=== PATIENT | male | born 1925 | race Caucasian/White ===

== ENCOUNTER 2016-06-14 06:14 | Inpatient (IN) | payer MEDICARE ==
[2016-06-14] VITALS (14 sets, daily range): BP systolic 94–132
[~2016-06-14] VITALS: Ht 170.2 cm; Wt 76.7 kg
[~2016-06-14 06:14] MED LIST: ALBU2.5V7 INH; ALBU8.5H8 INH; DOCU-144 PO; FINA5TAB3 PO; FLUT16SP16 NS; MOME13HF INH; MULT PO; OMEP20CA10 PO; PROP20TA7 PO; SENN-153 PO; TAMS0.4C96 PO
[2016-06-14] MEDS ORDERED: NACL 0.9% 1,000 ML IV ONE ×2 (06:30→08:30)
[2016-06-14 06:53] LABS: BASOPHILS % (AUTO) 0.3 % (0.0-2.0); EOSINOPHILS % (AUTO) 0.3 % (0.0-4.0); HEMATOCRIT 30.9 % (36-54); HEMOGLOBIN 10.2 g/dL (14.0-18.0); LYMPHOCYTES # (AUTO) 0.5 K/uL (1.0-5.5); LYMPHOCYTES % (AUTO) 8.8 % (20.5-51.5); MEAN CORPUSCULAR HEMOGLOBIN 29 pg (27-31); MEAN CORPUSCULAR HGB CONC 33 % (32-36); MEAN CORPUSCULAR VOLUME 87 fL (79.0-98.0); MONOCYTES % (AUTO) 0.3 % (1.7-9.3); NEUTROPHILS # (AUTO) 5.6 K/uL (1.8-7.7); NEUTROPHILS % (AUTO) 90.3 % (40.0-70.0); PLATELET COUNT (AUTO) 201 K/uL (130-430); RED BLOOD CELL COUNT(AUTO) 3.53 MIL/uL (4.2-6.2); WHITE BLOOD COUNT (AUTO) 6.1 K/uL (4.8-10.8)
[2016-06-14] MEDS ORDERED: ACET-2165 PO (06:58)
[2016-06-14 07:00] LABS: BILIRUBIN,URINE NEGATIVE (NEGATIVE); BLOOD, URINE 2+ (NEGATIVE); CLARITY/URINE CLOUDY (CLEAR); COLOR,URINE YELLOW (YELLOW); GLUCOSE,URINE NEGATIVE (NEGATIVE); KETONES,URINE NEGATIVE (NEGATIVE); LEUKOCYTE ESTERASE ,URINE 3+ (NEGATIVE); NITRITE, URINE POSITIVE (NEGATIVE); PH,URINE 5.5 (5.0-8.0); PROTEIN URINE TRACE (NEGATIVE); UROBILINOGEN,URINE 0.2 (0.2-1.0)
[2016-06-14] MEDS ORDERED: MOME13HF IH (07:00)
[2016-06-14 07:01] LABS: PROTHROMBIN TIME 11.3 SECS (9.5-12.5)
[2016-06-14 07:02] LABS: ANION GAP 9 (5-15); CHLORIDE 104 mmol/L (98-107); CREATININE 1.94 mg/dL (0.55-1.30); GLUCOSE 141 mg/dL (70-99); POTASSIUM 3.8 mmol/L (3.5-5.1); SODIUM SERUM 137 mmol/L (136-145); UREA NITROGEN, BLOOD 26 mg/dL (8-21)
[2016-06-14] MEDS ORDERED: LIDOINT TP (07:02)
[2016-06-14] MEDS ORDERED: CLOT15CR10 TP (07:04)
[2016-06-14 07:15] LABS: ALANINE AMINOTRANSFERASE 44 U/L (12-78); ALBUMIN 3.4 g/dL (3.4-4.8); ASPARTATE AMINOTRANSFERASE 19 U/L (10-37); CREATINE KINASE, TOTAL 40 U/L (39-308); TOTAL BILIRUBIN 1.2 mg/dL (0.0-1.0); TOTAL PROTEIN, SERUM 7.7 g/dL (6.4-8.3)
[2016-06-14 07:16] LABS: ALCOHOL, BLOOD < 3 mg/dL (<10)
[2016-06-14 07:26] LABS: BACTERIA,URINE MANY /HPF (None Seen); WBC,URINE 20-50 /HPF (0-3)
[2016-06-14 07:39] LABS: SALICYLATE < 1 mg/dL (3-30)
[2016-06-14 07:43] LABS: BARBITURATE, URINE NEGATIVE (NEG <=200); BENZODIAZEPINE, URINE NEGATIVE (NEG <=150); CANNABINOID, URINE NEGATIVE (NEG <=50); COCAINE, URINE NEGATIVE (NEG <=150); METHAMPHETAMINES SCREEN,URINE NEGATIVE (NEG <=500); OPIATE, URINE NEGATIVE (NEG <=100); PHENCYCLIDINE SCREEN,URINE NEGATIVE (NEG <=25); UR TRICYCLIC ANTIDEPRESSANTS NEGATIVE (NEG <=300); URINE AMPHETAMINE NEGATIVE (NEG <=500); URINE METHADONE NEGATIVE (NEG <=200); URINE OXYCODONE SCREEN NEGATIVE (NEG <=100); URINE PROPOXYPHENE SCREEN NEGATIVE (NEG <=300)
[2016-06-14] MEDS ORDERED: ONDANSETRON HCL 4 MG/2 ML VIAL IVP ONE (07:45)
[2016-06-14] MEDS ORDERED: ACETAMINOPHEN 325 MG TABLET PO ONE (08:00)
[2016-06-14] MEDS: NACL 0.9% 1,000 ML IV SCH ×2 (14:59→22:34)
[2016-06-14] MEDS ORDERED: ACETAMINOPHEN 325 MG TABLET PO PRN (15:30)
[2016-06-14] MEDS ORDERED: ALBUTEROL SULFATE 0.083% 2.5 MG/3 ML VIAL.NEB INH PRN (16:00)
[2016-06-14] MEDS ORDERED: COMMUNICATION ORDER XX ONE (16:30)
[2016-06-14] MEDS: DOCUSATE SODIUM 100 MG CAPSULE PO SCH (21:18)
[2016-06-14] MEDS: PROPRANOLOL HCL 10 MG TABLET (INDERAL) PO SCH (21:18)
[2016-06-14] MEDS: TAMSULOSIN HCL 0.4 MG CAP PO SCH (21:18)
[2016-06-14] MEDS: SENNOSIDES 8.6 MG TABLET PO SCH (21:19)
[2016-06-14] MEDS ORDERED: CEFEPIME 1 GM/VIAL (MAXIPIME) ONE (21:48)
[2016-06-14] MEDS: CEFEPIME 1 GM in D5W 50 ML IV SCH (22:00)
[2016-06-15] VITALS (24 sets, daily range): BP systolic 98–146
[2016-06-15 06:43] LABS: BASOPHILS % (AUTO) 0.1 % (0.0-2.0); EOSINOPHILS # (AUTO) 0.1 K/uL (0.0-0.4); EOSINOPHILS % (AUTO) 0.8 % (0.0-4.0); HEMATOCRIT 26.5 % (36-54); HEMOGLOBIN 8.4 g/dL (14.0-18.0); LYMPHOCYTES # (AUTO) 1.3 K/uL (1.0-5.5); LYMPHOCYTES % (AUTO) 15.6 % (20.5-51.5); MEAN CORPUSCULAR HEMOGLOBIN 28 pg (27-31); MEAN CORPUSCULAR HGB CONC 32 % (32-36); MEAN CORPUSCULAR VOLUME 88 fL (79.0-98.0); MONOCYTES # (AUTO) 0.4 K/uL (0.0-1.0); MONOCYTES % (AUTO) 4.2 % (1.7-9.3); NEUTROPHILS # (AUTO) 6.5 K/uL (1.8-7.7); NEUTROPHILS % (AUTO) 79.3 % (40.0-70.0); PLATELET COUNT (AUTO) 123 K/uL (130-430); RED BLOOD CELL COUNT(AUTO) 3.02 MIL/uL (4.2-6.2); RED CELL DISTRIBUTION WIDTH 15.1 % (9.0-15.0); WHITE BLOOD COUNT (AUTO) 8.3 K/uL (4.8-10.8)
[2016-06-15 06:55] LABS: ALANINE AMINOTRANSFERASE 32 U/L (12-78); ALBUMIN 2.4 g/dL (3.4-4.8); ANION GAP 7 (5-15); ASPARTATE AMINOTRANSFERASE 24 U/L (10-37); CALCIUM 8.3 mg/dL (8.4-11.0); CHLORIDE 108 mmol/L (98-107); CREATININE 1.52 mg/dL (0.55-1.30); GLUCOSE 99 mg/dL (70-99); POTASSIUM 4.1 mmol/L (3.5-5.1); SODIUM SERUM 139 mmol/L (136-145); THYROID STIMULATING HORMONE 2.56 uIu/mL (0.34-4.82); TOTAL BILIRUBIN 0.8 mg/dL (0.0-1.0); TOTAL PROTEIN, SERUM 6.1 g/dL (6.4-8.3); UREA NITROGEN, BLOOD 23 mg/dL (8-21)
[2016-06-15] MEDS ORDERED: LEVOFLOXACIN 250 MG/D5W 50 ML IV SCH (07:00)
[2016-06-15] MEDS ORDERED: OMEPRAZOLE 20 MG CAPSULE.DR (PriLOSEC) PO SCH (07:00)
[2016-06-15] MEDS: DOCUSATE SODIUM 100 MG CAPSULE PO SCH ×2 (08:10→21:38)
[2016-06-15] MEDS: NACL 0.9% 1,000 ML IV SCH ×2 (08:14→17:58)
[2016-06-15] MEDS: PROPRANOLOL HCL 10 MG TABLET (INDERAL) PO SCH ×2 (08:16→21:38)
[2016-06-15] MEDS ORDERED: LIDOCAINE TOPICAL OINT 5%, 35 GM TP SCH (09:00)
[2016-06-15] MEDS ORDERED: FINASTERIDE 5 MG TABLET (PROSCAR) PO SCH (09:00)
[2016-06-15] MEDS ORDERED: FLUTICASONE PROPIONATE 50 mCg/SPRAY 16 GM NS SCH (09:00)
[2016-06-15] MEDS ORDERED: TOBRAMYCIN SULFATE 80 MG in NS 50 ML IV ONE (13:00)
[2016-06-15] MEDS: CEFEPIME 1 GM in D5W 50 ML IV SCH (21:33)
[2016-06-15] MEDS: SENNOSIDES 8.6 MG TABLET PO SCH (21:38)
[2016-06-15] MEDS: TAMSULOSIN HCL 0.4 MG CAP PO SCH (21:38)
== END 2016-06-15 23:00 | disposition short-term general hospital (02) | DRG 871 ==
LOC: SED 06:14 → SIC 12:14
PROVIDERS: ADMIT Internal Medicine; ATTEND Internal Medicine
DX: A41.50 Gram-negative sepsis, unspecified (principal); R65.21 Severe sepsis with septic shock; G93.40 Encephalopathy, unspecified; N39.0 Urinary tract infection, site not specified; N13.8 Other obstructive and reflux uropathy; N17.9 Acute kidney failure, unspecified; E11.22 Type 2 diabetes mellitus with diabetic chronic kidney disease; G20 Parkinson's disease; N18.9 Chronic kidney disease, unspecified; I12.9 Hypertensive chronic kidney disease with stage 1 through stage 4 chronic kidney disease, or unspecified chronic kidney disease; J45.909 Unspecified asthma, uncomplicated; K21.9 Gastro-esophageal reflux disease without esophagitis; N40.1 Benign prostatic hyperplasia with lower urinary tract symptoms; Z79.899 Other long term (current) drug therapy; Z87.440 Personal history of urinary (tract) infections
CPT/HCPCS: 36415; 70450-TC; 71010; 80053; 80307; 81000-TC; 82550-TC; 82962; 83605; 84443-TC; 84484; 85025; 85610-TC; 85730-TC; 87040-TC; 87081; 87086; 87186-TC; 96361; 96374; 99285; G0481; G0482; J0692; J1956; J2405; J3260; J7030; J7060

== ENCOUNTER 2016-07-14 05:49 | Emergency (ER) | payer MEDICARE ==
[~2016-07-14] VITALS: Ht 167.6 cm; Wt 72.6 kg
[~2016-07-14 05:49] MED LIST changes: +ACET-2165 PO; +CLOT15CR10 TP; +LIDOINT TP; +MOME13HF IH; -MOME13HF INH
[2016-07-14 05:50] VITALS: BP_SYST 139
[2016-07-14] MEDS ORDERED: NACL 0.9% 1,000 ML IV SCH (05:54)
[2016-07-14] MEDS ORDERED: ACETAMINOPHEN 325 MG TABLET PO ONE (06:00)
[2016-07-14] MEDS ORDERED: LEVOFLOXACIN 500 MG/D5W 100 ML IV ONE (06:00)
[2016-07-14] MEDS ORDERED: TRAM50TA92 PO (06:20)
[2016-07-14] MEDS ORDERED: MOME13HF2 INH (06:20)
[2016-07-14 06:28] LABS: BILIRUBIN,URINE NEGATIVE (NEGATIVE); BLOOD, URINE 3+ (NEGATIVE); CLARITY/URINE SL HAZY (CLEAR); COLOR,URINE YELLOW (YELLOW); GLUCOSE,URINE NEGATIVE (NEGATIVE); KETONES,URINE NEGATIVE (NEGATIVE); LEUKOCYTE ESTERASE ,URINE 2+ (NEGATIVE); NITRITE, URINE NEGATIVE (NEGATIVE); PROTEIN URINE 2+ (NEGATIVE); UROBILINOGEN,URINE 0.2 (0.2-1.0)
[2016-07-14 06:45] LABS: BASOPHILS # (AUTO) 0.1 K/uL (0.0-0.2); BASOPHILS % (AUTO) 0.9 % (0.0-2.0); EOSINOPHILS # (AUTO) 0.1 K/uL (0.0-0.4); EOSINOPHILS % (AUTO) 0.8 % (0.0-4.0); HEMATOCRIT 27.1 % (36-54); HEMOGLOBIN 8.7 g/dL (14.0-18.0); LYMPHOCYTES # (AUTO) 0.6 K/uL (1.0-5.5); LYMPHOCYTES % (AUTO) 7.9 % (20.5-51.5); MEAN CORPUSCULAR HEMOGLOBIN 28 pg (27-31); MEAN CORPUSCULAR HGB CONC 32 % (32-36); MEAN CORPUSCULAR VOLUME 88 fL (79.0-98.0); MONOCYTES % (AUTO) 0.5 % (1.7-9.3); NEUTROPHILS # (AUTO) 6.8 K/uL (1.8-7.7); NEUTROPHILS % (AUTO) 89.9 % (40.0-70.0); PLATELET COUNT (AUTO) 165 K/uL (130-430); RED BLOOD CELL COUNT(AUTO) 3.09 MIL/uL (4.2-6.2); RED CELL DISTRIBUTION WIDTH 16.8 % (9.0-15.0); WHITE BLOOD COUNT (AUTO) 7.6 K/uL (4.8-10.8)
[2016-07-14 06:49] LABS: ANION GAP 7 (5-15); CALCIUM 8.4 mg/dL (8.4-11.0); CHLORIDE 104 mmol/L (98-107); CREATININE 1.57 mg/dL (0.55-1.30); GLUCOSE 141 mg/dL (70-99); POTASSIUM 3.7 mmol/L (3.5-5.1); SODIUM SERUM 134 mmol/L (136-145); UREA NITROGEN, BLOOD 20 mg/dL (8-21)
[2016-07-14 06:50] LABS: RBC,URINE 80-100 /HPF (0-3)
[2016-07-14 06:51] LABS: BACTERIA,URINE FEW /HPF (None Seen); MUCUS,URINE None Seen /LPF (None Seen)
[2016-07-14 06:54] LABS: ALANINE AMINOTRANSFERASE 22 U/L (12-78); ASPARTATE AMINOTRANSFERASE 18 U/L (10-37); TOTAL BILIRUBIN 0.7 mg/dL (0.0-1.0); TOTAL PROTEIN, SERUM 6.8 g/dL (6.4-8.3)
[2016-07-14 07:17] LABS: INR 1.1 (0.80-1.20); PROTHROMBIN TIME 11.6 SECS (9.5-12.5)
[2016-07-14] MEDS ORDERED: ONDANSETRON HCL 4 MG/2 ML VIAL IVP ONE (07:45)
[2016-07-14] MEDS ORDERED: ONDANSETRON HCL 4 MG/2 ML VIAL ONE (07:49)
[2016-07-14] MEDS ORDERED: IBUPROFEN 600 MG TABLET PO ONE (08:30)
[2016-07-14 09:11] VITALS: BP_SYST 116
== END 2016-07-14 09:14 | disposition short-term general hospital (02) ==
LOC: SED 05:49
DX: R50.9 Fever, unspecified (principal); N39.0 Urinary tract infection, site not specified; D64.9 Anemia, unspecified; J45.909 Unspecified asthma, uncomplicated; I10 Essential (primary) hypertension; K21.9 Gastro-esophageal reflux disease without esophagitis; E11.9 Type 2 diabetes mellitus without complications; Z90.79 Acquired absence of other genital organ(s)
CPT/HCPCS: 36415; 71010; 80053; 81000; 85025; 83605; 85610; 85730; 87040; 87086; 87186; 93005; 96365; 96375; 99285; J1956; J2405; J7030

== ENCOUNTER 2017-03-14 01:24 | Emergency (ER) | payer MEDICARE, BC ==
[~2017-03-14] VITALS: Ht 172.7 cm; Wt 69.9 kg
[~2017-03-14 01:24] MED LIST changes: -CLOT15CR10 TP; -LIDOINT TP; +MOME13HF2 INH; +TRAM50TA92 PO
[2017-03-14 01:35] VITALS: BP_SYST 140
[2017-03-14] MEDS ORDERED: BACITRACIN 1 GM OINT TP ONE (02:15)
[2017-03-14 04:03] VITALS: BP_SYST 127
== END 2017-03-14 04:03 | disposition home or self-care (01) ==
LOC: SED 01:24
DX: S50.01XA Contusion of right elbow, initial encounter (principal); S00.81XA Abrasion of other part of head, initial encounter; J45.909 Unspecified asthma, uncomplicated; I10 Essential (primary) hypertension; E11.9 Type 2 diabetes mellitus without complications; K21.9 Gastro-esophageal reflux disease without esophagitis; W01.10XA Fall on same level from slipping, tripping and stumbling with subsequent striking against unspecified object, initial encounter; Y93.89 Activity, other specified; Y92.89 Other specified places as the place of occurrence of the external cause; Y99.8 Other external cause status
CPT/HCPCS: 70450-TC; 99284